=== PATIENT | male | born 1955 | race Caucasian/White ===

== ENCOUNTER → 2019-01-09 | Outpatient (CLI) | payer OTHER ==
[~2019-01-09] MED LIST: CEFADROXIL500 M1 PO; CLINDAMYCIN HC300 MG PO
== END | disposition home or self-care (01) ==
LOC: LAB 11:45
DX: R73.9 Hyperglycemia, unspecified (principal)

== ENCOUNTER 2019-02-04 14:31 | Emergency (ER) | payer OTHER ==
[~2019-02-04] VITALS: Ht 167.6 cm; Wt 106.6 kg
[~2019-02-04 14:31] MED LIST changes: -CLINDAMYCIN HC300 MG PO
[2019-02-04] MEDS ORDERED: CLINDAMYCIN HC300 MG PO (15:07)
== END 2019-02-04 15:20 | disposition home or self-care (01) ==
LOC: ED 14:31
DX: L03.116 Cellulitis of left lower limb (principal); Z88.6 Allergy status to analgesic agent; Z88.1 Allergy status to other antibiotic agents